=== PATIENT | female | born 1965 | race Hispanic/Latino ===

== ENCOUNTER 2019-05-08 15:40 | Outpatient (CLI) | payer MEDICARE ==
--- NOTE | 2019-05-08 16:12 | XRay Report ---
CHEST 2 VIEWS INDICATION: Productive cough. COMPARISON: None. FINDINGS: Heart: Within normal limits. Pulmonary vasculature: Normal. Lungs/pleura: Very mild left lower lobe patchy opacities on both views. No pulmonary consolidation. T he lungs are otherwise clear. No pleural effusion. No pneumothorax. IMPRESSION: Mild patchy opacities of the left lower lobe which may indicate a mild pneumonia. Signer Name: Moises Cantor MD Signed: 05/08/2019 4:07 PM Workstation Name: [id number]
== END 2019-05-08 15:41 | disposition home or self-care (01) ==
LOC: SPVIMAG 15:40
PROVIDERS: ATTEND Internal Medicine
DX: R05 Cough (principal)
CPT/HCPCS: 71046

== ENCOUNTER 2019-05-15 13:01 | Outpatient (CLI) | payer MEDICARE ==
--- NOTE | 2019-05-15 13:47 | XRay Report ---
PA AND LATERAL CXR HISTORY: Follow-up left lower lobe pneumonia. COMPARISON: 05/08/2019 FINDINGS: Cardiomediastinal silhouette: Normal cardiac size. Normal mediastinal contours. Lungs: Normal expansion. Normal lung aeration. Previously identified left lower lobe patchy opacitie s have resolved. No airspace disease. No pleural effusions. No pneumothorax. Pulmonary vascularity: Normal. Support hardware: None. Additional findings: None. IMPRESSION: 1. Resolution of left lower lobe pneumonia. Signer Name: Moises Cantor MD Signed: 05/15/2019 1:42 PM Workstation Name: [id number]
== END 2019-05-15 13:02 | disposition home or self-care (01) ==
LOC: SPVIMAG 13:01
PROVIDERS: ATTEND Internal Medicine
DX: J15.9 Unspecified bacterial pneumonia (principal)
CPT/HCPCS: 71046